=== PATIENT | male | born 1990 | race Caucasian/White ===

== ENCOUNTER 2018-04-27 15:43 | Emergency (ER) | payer OTHER ==
[~2018-04-27] VITALS: Ht 177.8 cm; Wt 79.4 kg
[2018-04-27 15:54] VITALS: Ht 177.8 cm; Wt 79.4 kg
[2018-04-27 18:32] VITALS: BP 139/86
== END 2018-04-27 18:32 | disposition home or self-care (01) ==
LOC: ED 15:43
DX: S61.432A Puncture wound without foreign body of left hand, initial encounter (principal); J45.901 Unspecified asthma with (acute) exacerbation; R03.0 Elevated blood-pressure reading, without diagnosis of hypertension; W26.0XXA Contact with knife, initial encounter; Y93.89 Activity, other specified; Y92.89 Other specified places as the place of occurrence of the external cause; Y99.8 Other external cause status
CPT/HCPCS: 90715; J2001; J7613; J7644